=== PATIENT | male | born 1980 | race Two or more races ===

== ENCOUNTER 2022-07-20 13:57 | Emergency (ER) | payer BC ==
[~2022-07-20] VITALS: Ht 188 cm; Wt 89.8 kg
[2022-07-20] MEDS ORDERED: SILVADENE20 GM TOP (16:06)
[2022-07-20] MEDS ORDERED: AMOX-CLAV 875-1 EACH PO (16:06)
== END 2022-07-20 16:30 | disposition home or self-care (01) ==
LOC: ER 13:57
DX: T24.001A Burn of unspecified degree of unspecified site of right lower limb, except ankle and foot, initial encounter (principal); X16.XXXA Contact with hot heating appliances, radiators and pipes, initial encounter; Y93.9 Activity, unspecified; Y92.9 Unspecified place or not applicable; L97.819 Non-pressure chronic ulcer of other part of right lower leg with unspecified severity